=== PATIENT | male | born 1960 | race Caucasian/White ===

== ENCOUNTER 2024-09-18 15:05 | Emergency (ER) | payer OTHER ==
[2024-09-18] MEDS ORDERED: Acetaminophen 500 MG TAB ONE (15:51)
[2024-09-18] MEDS ORDERED: Ketorolac Tromethamine 30 MG (1 mL) VIAL ONE (15:51)
[2024-09-18 16:20] LABS: #Basophils 0.08 10x3/uL (0.0-0.2); %Basophils 1.7 % (0.0-1.0); %Eosinophils 5.3 % (0.0-10.0); %Lymphocytes 22.3 % (21.0-51.0); %Monocytes 11.9 % (0.0-10.0); %Neutrophils 58.4 % (42.0-75.0); Hematocrit 40.8 % (42.0-52.0); Hemoglobin 14.7 g/dL (14.0-18.0); Mean Corpuscular Hemoglobin 34.7 pg (27.0-31.0); Mean Corpuscular Volume 96.2 fL (78.0-98.0); Mean Platelet Volume 10.2 fL (7.4-10.4); Platelet Count 280 10x3/uL (130-400); RBC Distribution Width 11.8 % (11.5-14.5); Red Blood Cell (RBC) Count 4.24 mill/uL (4.70-6.10)
[2024-09-18 16:34] LABS: ALT (SGPT) 20 U/L (8-55); AST (SGOT) 29 U/L (5-34); Albumin 4.1 g/dL (3.4-4.8); Alkaline Phosphatase 71 U/L (40-110); Anion Gap 10 mmol/L (10-20); BUN (Urea Nitrogen) 17 mg/dL (8.4-25.7); Bilirubin, Total 0.4 mg/dL (0.2-1.2); Calc. Creatinine Clearance 0 mL/min (70-130); Calcium 8.8 mg/dL (7.8-10.44); Carbon Dioxide 29 mmol/L (23-31); Chloride 105 mmol/L (98-107); Estimated GFR 95; Globulin 2.9 g/dL (2.4-3.5); Glucose 92 mg/dL (80-115); Potassium 4.4 mmol/L (3.5-5.1); Sodium 140 mmol/L (136-145)
[2024-09-18 16:49] LABS: Troponin I 0.011 ng/mL (< 0.028)
[2024-09-18] MEDS ORDERED: Meclizine HCl 25 MG TAB ONE (16:52)
[2024-09-18 17:00] LABS: PTT 29.5 sec (22.9-36.1); Prothrombin Time 13.4 sec (12.0-14.7)
[2024-09-18] MEDS ORDERED: Mineral Oil ENEMA ONE (17:01)
[2024-09-18 17:10] LABS: Magnesium 2.2 mg/dL (1.6-2.6)
== END 2024-09-18 18:06 ==
LOC: ERS 15:05 → EEVIPCON 15:05 → ERS 18:06
DX: H61.23 Impacted cerumen, bilateral (principal); R42 Dizziness and giddiness; R51.9 Headache, unspecified; R29.700 NIHSS score 0; I10 Essential (primary) hypertension
CPT/HCPCS: 69210; 70450; 80053; 83735; 84443; 84484; 85025; 85610; 85730; 93005; 94760; 96374; J1885